=== PATIENT | male | born 1980 | race Two or more races ===

== ENCOUNTER 2018-02-17 14:29 | Emergency (ER) | payer OTHER ==
[~2018-02-17] VITALS: Ht 172.7 cm; Wt 86.2 kg
[2018-02-17 16:01] VITALS: BP 143/94
[2018-02-17] MEDS ORDERED: HYDR-3164 PO (16:03)
[2018-02-17] MEDS ORDERED: PENI500T PO (16:03)
--- NOTE | 2018-02-17 16:04 | PHYS DOC ---
Adult General Chief Complaint Chief Complaint: DENTAL PROBLEM HPI HPI Patient is a 37 year old male who presents with chronic dental pain times months. Left back tooth with inflamed gumline and lower left facial swelling. Afebrile. Review of Systems Review of Systems Constitutional: Denies fever or chills [] Eyes: Denies change in visual acuity, redness, or eye pain [] HENT: Denies nasal congestion or sore throat. Dental pain[] Respiratory: Denies cough or shortness of breath [] Cardiovascular: No additional information not addressed in HPI [] GI: Denies abdominal pain, nausea, vomiting, bloody stools or diarrhea [] : Denies dysuria or hematuria [] Musculoskeletal: Denies back pain or joint pain [] Integument: Denies rash or skin lesions [] Neurologic: Denies headache, focal weakness or sensory changes [] Endocrine: Denies polyuria or polydipsia [] All other systems were reviewed and found to be within normal limits, except as documented in this note. Allergies Allergies Allergies Coded Allergies Type Severity Reaction Last Updated Verified No Known Drug Allergies 02/17/18 No Physical Exam Physical Exam Constitutional: Well developed, well nourished, no acute distress, non-toxic appearance. [] HENT: Normocephalic, atraumatic, bilateral external ears normal, oropharynx moist, no oral exudates, nose normal. Upper left back tooth dental Dulce with gumline inflamed and left facial swelling.[] Eyes: PERRLA, EOMI, conjunctiva normal, no discharge. [] Neck: Normal range of motion, no tenderness, supple, no stridor. [] Cardiovascular:Heart rate regular rhythm, no murmur [] Lungs & Thorax: Bilateral breath sounds clear to auscultation [] Abdomen: Bowel sounds normal, soft, no tenderness, no masses, no pulsatile masses. [] Skin: Warm, dry, no erythema, no rash. [] Back: No tenderness, no CVA tenderness. [] Extremities: No tenderness, no cyanosis, no clubbing, ROM intact, no edema. [] Neurologic: Alert and oriented X 3, normal motor function, normal sensory function, no focal deficits noted. [] Psychologic: Affect normal, judgement normal, mood normal. [] Current Patient Data Vital Signs Vital Signs Date Time Temp Pulse Resp B/P (MAP) Pulse Ox O2 Delivery O2 Flow Rate FiO2 02/17/18 16:01 100.0 86 18 143/94 (110) 96 Room Air 100.0 EKG EKG [] Radiology/Procedures Radiology/Procedures [] Course & Med Decision Making Course & Med Decision Making Patient is a 37 year old male who presents with chronic dental pain times months. Left back tooth with inflamed gumline and lower left facial swelling. Afebrile. Patient states he has a dentist appointment on . Is a fever in the ED of 100. Feces been trying to take ibuprofen for the pain. Patient has left lower back tooth that is broken and the gum line is reddened. There is no inner abscess. Alert And oriented. Patient denies headache or body aches or recent illness. He is given prescription for antibiotic and pain medication. He said follow-up with his dentist as scheduled on . Staff Physician Addendum: I was working in the ER during the course of this patient's visit. I was available for consultation as needed, but I was not directly involved in the care of this patient. Dragon Disclaimer Dragon Disclaimer This electronic medical record was generated, in whole or in part, using a voice recognition dictation system. Departure Departure Impression: Primary Impression: Dental abscess Additional Impression: Dental caries Disposition: HOME, SELF-CARE Condition: STABLE Referrals: UNKNOWN PCP NAME (PCP) Patient Instructions: Dental Abscess, Dental Caries Additional Instructions: FOLLOW UP WITH DENTIST SCHEDULED. TAKE MEDICATIONS PRESCRIBED. DO NOT DRINK ALCOHOL WITH MEDICATIONS. Scripts Hydrocodone/Apap 5-325 (NORCO 5-325 TABLET) 1 Each Tablet 1 TAB PO PRN Q6HRS PRN for PAIN, #10 TAB 0 Refills Prov: NACHO EASTMAN APRN 02/17/18 Penicillin V Potassium (PENICILLIN V POTASSIUM) 500 Mg Tablet 1 TAB PO QID, #40 TAB Prov: NACHO EASTMAN APRN 02/17/18 Problem Qualifiers NACHO EASTMAN APRN Feb 17, 2018 16:04 GAVIOTA BRADLEY MD Feb 18, 2018 13:36
== END 2018-02-17 16:26 | disposition home or self-care (01) ==
LOC: ER 14:29
DX: K04.7 Periapical abscess without sinus (principal); K02.9 Dental caries, unspecified
CPT/HCPCS: 99283